=== PATIENT | male | born 1995 | race Caucasian/White ===

== ENCOUNTER 2020-01-13 18:50 | Emergency (ER) | payer SELFPAY ==
[~2020-01-13] VITALS: Ht 177.8 cm; Wt 104.3 kg
[2020-01-13 18:54] VITALS: BP 108/74
[2020-01-13 19:11] VITALS: BP 108/74
== END 2020-01-13 19:11 ==
LOC: MED 18:50
DX: F10.129 Alcohol abuse with intoxication, unspecified (principal); Z02.89 Encounter for other administrative examinations
CPT/HCPCS: 99283